=== PATIENT | male | born 1945 | race Caucasian/White ===

== ENCOUNTER 2020-11-15 19:55 | Inpatient (IN) | payer MEDICARE ==
[~2020-11-15] VITALS: Ht 177.8 cm; Wt 59.9 kg
[~2020-11-15 19:55] MED LIST: ACETAMINOPHEN-1 EAC1 PO; ALDACTONE 25MG25 MG PO; ASPIRIN CHEWABL81 MG PO; ATORVASTATIN CA80 MG PO; CATAPRES 0.1MG0.1 MG PO; CENTRUM SILVER1 EACH PO; CITALOPRAM HBR20 MG PO; COREG25 MG PO; D3; ENTRESTO 24 MG1 EACH PO; ENTRESTO 97 MG1 EACH PO; FERROUS SULFAT325 M2 PO; FINASTERIDE5 MG PO; FLOMAX 0.4 MG0.4 MG PO; FOLIC ACID0.8 MG PO; IPRAT-ALBUT 0.5-3 ML INH; LEVOFLOXACIN500 MG PO; MUCINEX600 MG PO; PROTONIX 40 MG40 M1 PO; QUNOL PO; SENNA-TIME S T1 EACH PO
[2020-11-15 20:58] LABS: RED BLOOD COUNT 3.98 M/UL (4.20-5.50)
[2020-11-16 04:27] LABS: HEMOGLOBIN 11.2 gm/dl (14.0-17.5); WHITE BLOOD COUNT 10.4 K/UL (4.5-11.0)
[2020-11-16 04:35] LABS: RED BLOOD COUNT 3.56 M/UL (4.20-5.50)
[2020-11-16] MEDS ORDERED: ENTRESTO 49 MG1 EACH PO (09:40)
[2020-11-16] MEDS ORDERED: BUMETANIDE1 MG PO (09:42)
[2020-11-16] MEDS ORDERED: SENNOSIDES-DOC1 EACH PO (11:22)
[2020-11-16] MEDS ORDERED: COQ-10100 MG PO (11:23)
[2020-11-16] MEDS ORDERED: PROSTATE HEALT1 EACH PO (11:24)
[2020-11-16 14:24] LABS: WHITE BLOOD COUNT 12.5 K/UL (4.5-11.0)
--- NOTE | 2020-11-16 15:45 | NUR ---
ETOMIDATE 20 MG IV GIVEN PER DR LARA. PT INTUBATED AT BEDSIDE WITH ETT 8 24 AT THE LIP. PT BAGGED BY LEONELA PADILLA WHILE ON PCU. PT GIVEN NS BOLUS X1 LITER. LEVOPHED IV 37.5 ML/HR AT 1213. INCREASED TO 56.3ML/HR AT 1217. BP 72/52. DIPROVAN IV STARTED AT 1213 AT 5 MCG/KG/MIN. INCREASED TO 10 MCG/KG/MIN AT 1245. LR BOLUS GIVEN IV OF 500 CC AT 1230. FENTANYL IV 50MCG STARTED AT 1414 AT 2ML/HR. ALL OF THESE MED ORDERS WERE PER DR LARA, PULM. LEVO TITRATED UP BY 2 MCG PER PROTOCOL FROM UP TO 20 MCG/MIN PER DR THOMPSON VERBAL ORDERS. DR STEPHEN PLACED RIGHT SUBCLAVIAN CENTRAL LINE AT 1345. CONFIRMED BY CHEST XRAY READ BY DR STEPHEN AT BEDSIDE. CHEST TUBE THAT WAS PLACED PRIOR TO ICU TRANSFER WAS CLAMPED PER DR LARA AFTER SECOND CANISTER WAS FILLED UP. DR THOMPSON NOTIFIED AND CAME TO BEDSIDE AT 1530 PER MY REQUEST PT REMAINS HYPOTENSIVE 70/52 AND APPEARS TO HAVE INCREAD WOB. MADE SEDATIVE ADJUSTMENTS PER EMAR AND PER DR THOMPSON. WCTM. DAUGHTER AT BEDSIDE.
[2020-11-16 15:55] LABS: HEMOGLOBIN 13.4 gm/dl (14.0-17.5); RED BLOOD COUNT 4.3 M/UL (4.20-5.50)
== END 2020-11-16 17:45 | disposition expired | DRG 208 ==
LOC: ER1 19:55 → CDU 22:16 → PROG CARE 11-16 08:39 → CCU 11-16 12:20
PROVIDERS: Physician Assistant; Surgery; ADMIT Internal Medicine
PROC: 3E02340 Introduction of Influenza Vaccine into Muscle, Percutaneous Approach (ICD-10-PCS; principal; 2020-11-16)
PROC: 0BH18EZ Insertion of Endotracheal Airway into Trachea, Via Natural or Artificial Opening Endoscopic (ICD-10-PCS; 2020-11-16)
PROC: 5A1945Z Respiratory Ventilation, 24-96 Consecutive Hours (ICD-10-PCS; 2020-11-16)
PROC: 0W9B30Z Drainage of Left Pleural Cavity with Drainage Device, Percutaneous Approach (ICD-10-PCS; 2020-11-16)
DX: C34.91 Malignant neoplasm of unspecified part of right bronchus or lung (principal); J96.01 Acute respiratory failure with hypoxia; G93.41 Metabolic encephalopathy; I21.A1 Myocardial infarction type 2; I50.43 Acute on chronic combined systolic (congestive) and diastolic (congestive) heart failure; N17.9 Acute kidney failure, unspecified; J91.0 Malignant pleural effusion; I13.0 Hypertensive heart and chronic kidney disease with heart failure and stage 1 through stage 4 chronic kidney disease, or unspecified chronic kidney disease; E87.2 Acidosis; I44.0 Atrioventricular block, first degree; I71.4 Abdominal aortic aneurysm, without rupture; R13.12 Dysphagia, oropharyngeal phase; J44.9 Chronic obstructive pulmonary disease, unspecified; K21.9 Gastro-esophageal reflux disease without esophagitis; I25.10 Atherosclerotic heart disease of native coronary artery without angina pectoris; D69.6 Thrombocytopenia, unspecified; I25.5 Ischemic cardiomyopathy; I48.0 Paroxysmal atrial fibrillation; E78.5 Hyperlipidemia, unspecified; R57.0 Cardiogenic shock; Z66 Do not resuscitate; Z51.5 Encounter for palliative care; Z95.0 Presence of cardiac pacemaker; Z95.810 Presence of automatic (implantable) cardiac defibrillator; Z95.1 Presence of aortocoronary bypass graft; Z79.899 Other long term (current) drug therapy; Z79.01 Long term (current) use of anticoagulants; Z79.52 Long term (current) use of systemic steroids; Z87.891 Personal history of nicotine dependence; Z79.82 Long term (current) use of aspirin; Z82.49 Family history of ischemic heart disease and other diseases of the circulatory system; Z23 Encounter for immunization
CPT/HCPCS: 31500; 36415; 36600; 71045; 80053; 81001; 82550; 82553; 82803; 83036; 83540; 83550; 83605; 83735; 83874; 83880; 84100; 84443; 84484; 85025; 85027; 85610; 85652; 85730; 86140; 86850; 86900; 86901; 87040; 87086; 93005; 94002; 94760; 99285; C1729; C1751; C9113; J1265; J1940; J2370; J2704; J3010; J7030; J7070; P9045; U0002